=== PATIENT | male | born 1955 | race Caucasian/White ===

== ENCOUNTER 2023-07-05 11:52 | Observation (INO) | payer MEDICARE, BC ==
[2023-07-05] MEDS ORDERED: FLU VACC QS2023(65UP)/MF59C/PF 60 MCG/0.5 ML SYRINGE IM ONE (16:00)
[2023-07-05] MEDS ORDERED: Ondansetron ODT 4 MG TAB PO PRN (16:34)
[2023-07-05] MEDS ORDERED: Nitroglycerin 0.4 MG TAB (25 Tab Bottle) SL PRN (16:34)
[2023-07-05] MEDS ORDERED: Ondansetron PF 4 MG/2 ML Vial IVP PRN (16:34)
[2023-07-05] MEDS ORDERED: Acetaminophen 325 MG TAB PO PRN (16:34)
[2023-07-05] MEDS ORDERED: Electrolyte Replacement Protocol 1 EACH FS SCH (16:45)
[2023-07-05 17:41] LABS: Troponin I 0.357 ng/mL (< 0.028)
[2023-07-05] MEDS ORDERED: Communication Order-Pharmacy FS SCH (18:00)
[2023-07-05 18:58] VITALS: BMI 26.4
[2023-07-05] MEDS ORDERED: Atorvastatin Calcium 40 MG TAB PO SCH (21:00)
[2023-07-05] MEDS: Nitroglycerin 2% Ointment 1 INCH/1 GM Packet TOP SCH (21:28)
[2023-07-06 05:28] LABS: Anion Gap 11 mmol/L (10-20); BUN (Urea Nitrogen) 17 mg/dL (8.4-25.7); Calc. Creatinine Clearance 94 mL/min (70-130); Calcium 8.6 mg/dL (7.8-10.44); Carbon Dioxide 25 mmol/L (23-31); Cardiac Risk 3.5 (Less than 4.5); Chloride 107 mmol/L (98-107); Cholesterol 144 mg/dl (< 200 Desired); Estimated GFR 95; Glucose 94 mg/dL (80-115); HDL Cholesterol 41 mg/dL (>60 Neg Risk); LDL Cholesterol, Calculated 83 mg/dL; Magnesium 1.9 mg/dL (1.6-2.6); Potassium 4.2 mmol/L (3.5-5.1); Sodium 139 mmol/L (136-145); Triglycerides 100 mg/dL (Less than 150)
[2023-07-06] MEDS ORDERED: Magnesium 2 GM/50 ML(in water) 2 GM in Premix Bag 1 BAG IVPB SCH (05:45)
[2023-07-06] MEDS ORDERED: Sodium Chloride 0.9% 1,000 ML IV SCH ×2 (06:00→09:45)
[2023-07-06] MEDS: Nitroglycerin 2% Ointment 1 INCH/1 GM Packet TOP SCH ×2 (06:24→06:36)
[2023-07-06] MEDS ORDERED: Nitroglycerin 50 MG/250 ML BOT 250 ML ONE (07:10)
[2023-07-06] MEDS ORDERED: Heparin 10,000 UNITS/ 10 ML VIAL ONE ×2 (07:10→09:07)
[2023-07-06] MEDS ORDERED: Lidocaine 1% (PF) 30 ML VIAL ONE (07:10)
[2023-07-06] MEDS ORDERED: fentaNYL 50 mcg/mL 1 mL Vial ONE (07:11)
[2023-07-06] MEDS ORDERED: Adenosine 6 MG/2 ML VIAL ONE (07:11)
[2023-07-06] MEDS ORDERED: Midazolam HCl 2 mg/2 ml Vial ONE ×2 (07:11→09:07)
[2023-07-06] MEDS ORDERED: Verapamil 5 MG/2 ML VIAL ONE (07:11)
[2023-07-06] MEDS ORDERED: Atropine Sulfate 1 mg/1 ml Vial ONE (07:11)
[2023-07-06] MEDS ORDERED: TICAGRELOR 90 MG TABLET ONE (08:53)
[2023-07-06] MEDS ORDERED: Spironolactone 25 MG TAB PO SCH (09:00)
[2023-07-06] MEDS ORDERED: Losartan Potassium 50 MG TAB PO SCH (09:00)
[2023-07-06] MEDS ORDERED: Aspirin 81 mg Enteric Coated Tablet PO SCH (09:00)
[2023-07-06] MEDS ORDERED: Amlodipine 5 MG TAB PO SCH (09:00)
[2023-07-06] MEDS ORDERED: Protamine Sulfate 50 MG/5 ML VIAL ONE (09:22)
[2023-07-06] MEDS ORDERED: Iopamidol 300 61% 100 ML VIAL FS ONE (10:17)
[2023-07-06 12:59] VITALS: BP 110/73; TEMP 97.7
[2023-07-06] MEDS ORDERED: TICAGRELOR 90 MG TABLET PO SCH (21:00)
[2023-07-06] MEDS ORDERED: Atorvastatin Calcium 40 MG TAB PO SCH (21:00)
== END 2023-07-06 14:36 | disposition home or self-care (01) ==
LOC: CSHTELE 14:43
PROVIDERS: ADMIT Internal Medicine; ATTEND Internal Medicine
PROC: 4A023N7 Measurement of Cardiac Sampling and Pressure, Left Heart, Percutaneous Approach (ICD-10-PCS; principal; 2023-07-06)
PROC: B215YZZ Fluoroscopy of Left Heart using Other Contrast (ICD-10-PCS; 2023-07-06)
PROC: B310YZZ Fluoroscopy of Thoracic Aorta using Other Contrast (ICD-10-PCS; 2023-07-06)
PROC: 02703ZZ Dilation of Coronary Artery, One Artery, Percutaneous Approach (ICD-10-PCS; 2023-07-06)
DX: I21.4 Non-ST elevation (NSTEMI) myocardial infarction (principal); I08.1 Rheumatic disorders of both mitral and tricuspid valves; I10 Essential (primary) hypertension; C18.9 Malignant neoplasm of colon, unspecified; Z79.899 Other long term (current) drug therapy
CPT/HCPCS: 80048; 80061; 82565; 83735; 84443; 84484 ×2; 85347 ×2; 92978; 92979; 93005; 93306; 93458; 94760; C1753; C1760 ×2; C1769; C1874; C1887; C9600; 36415; 92928; 93010; 96372; 96374; 99152; 99153; G0378; J0153; J0461; J1644; J1650; J2001; J2250; J2720; J3010; J3475; J7050; Q9967